=== PATIENT | female | born 1955 | race Caucasian/White ===

== ENCOUNTER → 2017-05-01 | Outpatient (CLI) | payer OTHER ==
[~2017-05-01] VITALS: Ht 160 cm; Wt 68.1 kg
[~2017-05-01] MED LIST: ALMOTRIPTAN PO; AMBIEN5 MG PO; ATARAX,VISTARIL25 MG PO; BRINTELLIX10 MG PO; COMPAZINE10 MG PO; CONZIP100 MG PO; DESYREL100 MG PO; DIGOXIN125 MCG PO; DOCUSATE SODIU100 MG PO; DOXEPIN HCL150 MG PO; ENDOCET 5-3251 EACH PO; ESTRACE42.5 GM VG; FIORICET 50-301 EACH PO; FOSAMAX70 MG PO; LOPRESSOR25 MG PO; LYRICA50 MG PO; MORPHINE SULFAT15 MG PO; MOTRIN600 MG PO; MUCINEX600 MG PO; NOHOMEMEDS; PERCOCET 5/31 TABLET PO; PREDNISONE20 MG PO; PROAIR HFA8.5 GM IH; PROPRANOLOL HCL10 MG PO; SIMVASTATIN40 MG PO; VENTOLIN HFA18 GM IH; VITAMIN D50000 UNI4 PO; XANAX1 MG PO; ZOFRAN ODT8 MG PO; ZOFRAN8 MG PO; ZOLOFT25 MG PO
== END | disposition home or self-care (01) ==
LOC: OPR 08:17 → EDSTATUS 09:00 → OPR 09:00
PROC: 0JB73ZX Excision of Back Subcutaneous Tissue and Fascia, Percutaneous Approach, Diagnostic (ICD-10-PCS; principal; 2017-05-01)
DX: M53.87 Other specified dorsopathies, lumbosacral region (principal); C34.12 Malignant neoplasm of upper lobe, left bronchus or lung; J44.9 Chronic obstructive pulmonary disease, unspecified; Z92.21 Personal history of antineoplastic chemotherapy; Z72.0 Tobacco use
CPT/HCPCS: 77012; 85610; 85730; 88305; J1200; J2250; J2405; J3010

== ENCOUNTER → 2017-10-14 | Outpatient (CLI) | payer SELFPAY | END | disposition home or self-care (01) | LOC: RAD 10-09 10:00 | DX: R59.0 Localized enlarged lymph nodes (principal); M89.9 Disorder of bone, unspecified; R93.8 Abnormal findings on diagnostic imaging of other specified body structures | CPT/HCPCS: 71260; 74177 ==